=== PATIENT | male | born 1955 | race African-American/Black ===

== ENCOUNTER 2017-03-02 23:44 | Emergency (ER) | payer OTHER, MEDICAID ==
--- NOTE | 2017-03-03 00:08 | ER Document Report ---
ED General - General Stated Complaint: SWOLLEN LIPS Time Seen by Provider: 03/03/17 00:03 Notes: Patient is a 61-year-old male with past medical history of hypertension who presents with 3-4 hours of upper and lower lip swelling. Discharge approximately 45 minutes after taking his hydrochlorothiazide lisinopril combination pill. States that he has been on this medication for many years and never had a similar reaction in the past. He denies any difficulty swallowing, breathing or handling his oral secretions. Notes that the swelling initially was just in the lower lip and then progressed to the upper lip but has not progressed in the past 1 hour. He does arrived by EMS and has received Benadryl IV prior to evaluation. He denies any additional complaints or concerns. Nothing improves or worsens his symptoms. He did not contact his primary care doctor regarding today's concerns. TRAVEL OUTSIDE OF THE [place] IN LAST 30 DAYS: No - Related Data Allergies/Adverse Reactions: lisinopril Allergy (Severe, Verified 03/03/17 00:29) Edema Past Medical History - General Information source: Patient - Social History Smoking Status: Former Smoker Frequency of alcohol use: None Drug Abuse: None Lives with: Family Family History: Reviewed & Not Pertinent - Past Medical History Cardiac Medical History: Reports: Hx Hypertension Psychiatric Medical History: Reports: Hx Depression - mood swings - Immunizations Hx Diphtheria, Pertussis, Tetanus Vaccination: No Review of Systems - Review of Systems Notes: Constitutional: Negative for fever. HENT: Negative for sore throat. Eyes: Negative for visual changes. Cardiovascular: Negative for chest pain. Respiratory: Negative for shortness of breath. Gastrointestinal: Negative for abdominal pain, vomiting or diarrhea. Genitourinary: Negative for dysuria. Musculoskeletal: Negative for back pain. Skin: Negative for rash. Neurological: Negative for headaches, weakness or numbness. 10 point ROS negative except as marked above and in HPI. Physical Exam - Vital signs Vitals: Temp Pulse Resp BP Pulse Ox 97.5 F 88 24 H 146/89 H 97 03/03/17 00:01 03/03/17 00:01 03/03/17 00:01 03/03/17 00:01 03/03/17 00:01 It is not tachypneic at time of arrival. Rate was 16 even and unlabored Interpretation: Normal Notes: PHYSICAL EXAMINATION: GENERAL: Well-appearing, well-nourished and in no acute distress. HEAD: Atraumatic, normocephalic. EYES: Pupils equal round and reactive to light, extraocular movements intact, sclera anicteric, conjunctiva are normal. ENT: nares patent, lips are swollen with angioedema but no oropharyngeal involvement, and airway is widely patent, no stridor. NECK: Normal range of motion, supple without lymphadenopathy LUNGS: Breath sounds clear to auscultation bilaterally and equal. No wheezes rales or rhonchi. HEART: Regular rate and rhythm without murmurs ABDOMEN: Soft, nontender, normoactive bowel sounds. No guarding, no rebound. No masses appreciated. EXTREMITIES: Normal range of motion, no pitting or edema. No cyanosis. NEUROLOGICAL: No focal neurological deficits. Moves all extremities spontaneously and on command. PSYCH: Normal mood, normal affect. SKIN: Warm, Dry, normal turgor, no rashes or lesions noted. Course - Re-evaluation Re-evalutation: 03/03/17 00:07 Patient presents with angioedema of the lips secondary to lisinopril. No oropharyngeal involvement. Airway patent. Phonation normal. Able to handle secretions. Tolerating oral intake without difficulty. Patient was observed and did not develop any progression of the swelling or any evidence of airway occlusion. They have been educated at length about the importance of avoiding ACEi and ARBs. At this time will discharge with return precautions and follow- up recommendations. Verbal discharge instructions given a the bedside and opportunity for questions given. Medication warnings reviewed. Patient is in agreement with this plan and has verbalized understanding of return precautions and the need for primary care follow-up in the next 24-72 hours. - Vital Signs Vital signs: Temp Pulse Resp BP Pulse Ox 97.5 F 88 14 128/91 H 98 03/03/17 00:01 03/03/17 00:01 03/03/17 01:31 03/03/17 01:31 03/03/17 01:31 Discharge - Discharge Clinical Impression: Angioedema of lips Qualifiers: Encounter type: initial encounter Qualified Code(s): T78.3XXA - Angioneurotic edema, initial encounter Condition: Good Disposition: HOME, SELF-CARE Additional Instructions: You have been diagnosed with angioedema today. This is related to a medication you are taking called lisinopril. You may never take this medication again or any other medication ending in -PRIL as you could have a recurrence of an even more severe version of what brought you to to the emergency department today. Please have your primary care physician for recommendations for alternative blood pressure medications. Your swelling will resolve over the next several days. Return to emergency room immediately if you have worsening swelling, shortness of breath, difficulty swallowing, noticed a change in your voice, or have any other symptoms that are of concern to you.
[2017-03-03 03:30] VITALS: BP 135/85
== END 2017-03-03 03:25 | disposition home or self-care (01) ==
LOC: ER 23:44
DX: T78.3XXA Angioneurotic edema, initial encounter (principal); R22.0 Localized swelling, mass and lump, head; I10 Essential (primary) hypertension; Z87.891 Personal history of nicotine dependence; X58.XXXA Exposure to other specified factors, initial encounter
CPT/HCPCS: 99283